=== PATIENT | male | born 1940 | race Caucasian/White ===

== ENCOUNTER 2022-07-13 13:53 | Inpatient (IN) ==
[2022-07-13] MEDS ORDERED: amLODIPine 5 MG TABLET ONE (20:37)
[2022-07-13] MEDS ORDERED: *HR* Heparin 5,000 UNIT/ML VIAL ONE (20:38)
[2022-07-13] MEDS ORDERED: 0.9 % Sodium Chloride 1,000 ML ONE (20:39)
[2022-07-13] MEDS: 0.9 % Sodium Chloride 1,000 ML IVC SCH (21:15)
[2022-07-14] MEDS ORDERED: *HR* Atropine Sulfate 1 MG/10 ML SYRINGE IVP PRN ×2 (00:45→15:12)
[2022-07-14] MEDS ORDERED: Acetaminophen 325 MG TABLET PO PRN (00:48)
[2022-07-14] MEDS ORDERED: *HR* Dextrose 50 % in Water (Syg) 50 ML SYRINGE IVP PRN (01:05)
[2022-07-14] MEDS ORDERED: D5% in Water 1,000 ML IVC PRN (01:05)
[2022-07-14] MEDS ORDERED: Dextrose Gel 15 GM/37.5 ML TUBE PO PRN ×2 (01:05)
[2022-07-14 03:30] LABS: Hematocrit 36.2 % (37.5-50.1); Hemoglobin 12.3 g/dL (12.9-16.9); Mean Corpuscular Hemoglobin 33.1 pg (28.0-33.3); Mean Corpuscular Volume 97.3 fL (83.0-100.0); Mean Platelet Volume 10.7 fL (9.4-12.4); Platelet Count 172 K/mcL (140-400); Red Blood Count 3.72 M/mcL (4.19-5.50); Red Cell Distribution Width 12.5 % (11.5-14.5); White Blood Count 7.7 K/mcL (4.3-11.1)
[2022-07-14 03:46] LABS: Calcium 8.7 mg/dL (8.6-10.3); Magnesium 1.7 mg/dL (1.6-2.6); Potassium 3.9 mEq/L (3.5-5.1)
[2022-07-14 03:56] LABS: Thyroid Stimulating Hormone 1.697 mcIU/mL (0.340-5.600)
[2022-07-14] MEDS: Insulin LISPRO 300 UNITS/3 ML VIAL SUBQ SCH ×3 (04:25→17:12)
[2022-07-14] MEDS: *HR* Heparin 5,000 UNIT/ML VIAL SQ SCH ×3 (05:09→23:18)
[2022-07-14] MEDS: amLODIPine 5 MG TABLET PO SCH (08:01)
[2022-07-14] MEDS ORDERED: Perflutren Lipid Microsphere 1.3 ML in 0.9 % Sodium Chloride 8.7 ML IVP PRN (10:44)
[2022-07-14] MEDS: 0.9 % Sodium Chloride 1,000 ML IVC SCH (12:13)
[2022-07-14] MEDS ORDERED: Cyanocobalamin (B-12) 1,000 MCG/ML VIAL IM ONE (15:07)
[2022-07-14] MEDS: Lacri-Lube 3.5 GM TUBE BOTH EYES SCH (20:46)
[2022-07-15] MEDS: Insulin LISPRO 300 UNITS/3 ML VIAL SUBQ SCH ×4 (01:50→16:44)
[2022-07-15] MEDS: *HR* Heparin 5,000 UNIT/ML VIAL SQ SCH (06:31)
[2022-07-15] MEDS: amLODIPine 5 MG TABLET PO SCH (08:34)
[2022-07-15] MEDS: Lacri-Lube 3.5 GM TUBE BOTH EYES SCH ×2 (08:34→20:20)
[2022-07-15] MEDS ORDERED: 0.9 % Sodium Chloride 1,000 ML ONE (11:39)
[2022-07-15] MEDS ORDERED: 0.9 % Sodium Chloride 500 ML ONE (11:40)
[2022-07-15] MEDS ORDERED: *HR* FentaNYL (PF) 100 MCG/2 ML VIAL ONE (12:05)
[2022-07-15] MEDS ORDERED: *HR* Midazolam HCl 2 MG/2 ML VIAL ONE (12:05)
[2022-07-15] MEDS: CeFAZolin 2 GM/120 ML BAG IVPB SCH (20:21)
[2022-07-15] MEDS ORDERED: Insulin LISPRO 300 UNITS/3 ML VIAL SUBQ SCH (21:00)
[2022-07-16 01:28] LABS: Basophils % 0.3 %; Eosinophils # 0.3 K/mcL (0.0-0.6); Eosinophils % 2.9 %; Hematocrit 38.4 % (37.5-50.1); Hemoglobin 13.4 g/dL (12.9-16.9); Immature Granulocytes % 0.3 % (0-4); Lymphocytes # 1.8 K/mcL (0.6-4.6); Lymphocytes % 19.1 %; Mean Corpuscular HGB Conc 34.9 g/dL (31.6-35.5); Mean Corpuscular Hemoglobin 33.7 pg (28.0-33.3); Mean Corpuscular Volume 96.5 fL (83.0-100.0); Mean Platelet Volume 10.6 fL (9.4-12.4); Monocytes # 0.9 K/mcL (0.0-1.3); Monocytes % 9.6 %; Neutrophils # 6.4 K/mcL (1.6-8.9); Platelet Count 170 K/mcL (140-400); Red Blood Count 3.98 M/mcL (4.19-5.50); Red Cell Distribution Width 12.8 % (11.5-14.5); Segmented Neutrophils % 67.8 %; White Blood Count 9.5 K/mcL (4.3-11.1)
[2022-07-16 01:38] LABS: Calcium 8.7 mg/dL (8.6-10.3); Magnesium 1.8 mg/dL (1.6-2.6); Potassium 3.7 mEq/L (3.5-5.1)
[2022-07-16] MEDS ORDERED: CeFAZolin 2 GM/120 ML BAG IVPB SCH (04:00)
[2022-07-16 04:14] VITALS: BP 159/59; PULSE 67; TEMP 98.2; O2SAT 97
[2022-07-16] MEDS: CeFAZolin 2 GM/120 ML BAG IVPB SCH (06:14)
[2022-07-16] MEDS ORDERED: Ascorbic Acid 500 MG TABLET PO SCH (09:00)
[2022-07-16] MEDS ORDERED: Cholecalciferol (D-3) 1,000 UNIT (25MCG) TABLET PO SCH (09:00)
[2022-07-16] MEDS ORDERED: Aspirin Enteric Coated 81 MG Tablet PO SCH (09:00)
[2022-07-16] MEDS: amLODIPine 5 MG TABLET PO SCH (09:07)
[2022-07-16] MEDS: Lacri-Lube 3.5 GM TUBE BOTH EYES SCH (09:08)
[2022-07-16] MEDS: Insulin LISPRO 300 UNITS/3 ML VIAL SUBQ SCH (09:14)
== END 2022-07-16 14:29 | disposition home or self-care (01) | DRG 244 ==
LOC: 2NENU → SUATTDRO 17:20
PROVIDERS: ADMIT Internal Medicine; ATTEND Hospitalist